=== PATIENT | female | born 1960 | race Caucasian/White ===

== ENCOUNTER 2019-06-06 13:58 | Outpatient (CLI) | payer MEDICARE, SELFPAY ==
--- NOTE | ~2019-06-06 | CT_ITS ---
EXAMINATION: CTA chest PE protocol EXAM DATE: 06/06/2019 15:15 INDICATION: Shortness of breath, DVT. TECHNIQUE: Spiral CTA of the chest (pulmonary arteries) was performed with 100 cc Omnipaque 350 intr avenous contrast injection. Images were acquired during the pulmonary arterial phase. Coronal maxi mum intensity projection 3D-reconstructions were created by the technologist on dedicated workstation . Axial, coronal and sagittal reformatted images were reviewed. The dose-length product (DLP) for t his examination was 904.44 mGy-cm. The exposure was tailored according to patient size (auto mA exp osure control), and iterative reconstruction (ASIR) was used as additional dose reduction technique. There is no prior study for comparison. FINDINGS: Pulmonary arteries are well opacified and without intraluminal filling defects. No thora cic aortic dissection. Right lower lobe noncalcified subcentimeter granuloma unchanged compared to 2 007. Linear right lower lobe subsegmental atelectasis. There are no pleural or pericardial effusions . Tracheobronchial tree is patent. There is no mediastinal, hilar or axillary lymphadenopathy. There is no pneumothorax. Heart normal in size. No evidence of coronary arterial calcification. Upper abdomen is unremarkable. There is thoracic spondylosis without osteoblastic or osteolytic les ions identified. Mild thyromegaly, small right thyroid lobe nodule. IMPRESSION: 1. No pulmonary emboli. 2. Granuloma, right basilar subsegmental atelectasis. Reviewed, dictated and finalized at location A. SITOLOGIST
[2019-06-06 15:05] LABS: Blood Urea Nitrogen 17 mg/dL (8-26); Estimated Glomerular Filt Rate > 60
== END 2019-06-06 13:59 | disposition home or self-care (01) ==
PROVIDERS: PCP Family Medicine; Visit Provider Physician Assistant
DX: J98.11 Atelectasis (principal); I82.401 Acute embolism and thrombosis of unspecified deep veins of right lower extremity
CPT/HCPCS: 71275; Q9967

== ENCOUNTER 2019-11-01 09:24 | Outpatient (CLI) | payer MEDICARE, SELFPAY ==
--- NOTE | ~2019-11-01 | US_ITS ---
EXAMINATION: US venous doppler LE RT DATE: 11/01/2019 10:39 INDICATION: Acute embolism and thrombosis, history of deep venous thrombosis of the right lower extre mity TECHNIQUE: Johnson scale images without and with compression and Doppler images of the right lower extre mity veins were obtained. COMPARISON: 04/24/2019 FINDINGS: The right common femoral vein, profunda femoral vein, femoral vein, popliteal vein, peronea l trunk, posterior tibial veins, and greater saphenous vein are patent. IMPRESSION: 1. Patent right lower extremity veins. No evidence of deep venous thrombosis. Reviewed, dictated and finalized at location A.
== END 2019-11-01 09:25 | disposition home or self-care (01) ==
LOC: ANHIMG 09:26
PROVIDERS: Visit Provider Family Medicine
DX: I82.401 Acute embolism and thrombosis of unspecified deep veins of right lower extremity (principal)
CPT/HCPCS: 93971

== ENCOUNTER 2020-03-19 08:17 | Outpatient (CLI) | payer MEDICARE, SELFPAY ==
--- NOTE | ~2020-03-19 | MM_ITS ---
EXAMINATION: MM screening [facility] BI w kerry HISTORY: Screening mammogram TECHNIQUE: Craniocaudal and mediolateral oblique 3-D tomosynthesis images were obtained and synthetic 2-D images were generated. CAD analysis was submitted and interpreted. COMPARISON: 02/25/2019, 02/18/2018, 02/13/2017 bilateral digital screening mammogram examinations BREAST PARENCHYMAL COMPOSITION: The breasts are heterogeneously dense, which may obscure small masses . FINDINGS: There is no evidence of suspicious mass, calcification, or architectural distortion to sugg est malignancy in either breast. There has been no suspicious interval change. IMPRESSION: 1. No mammographic evidence of malignancy. 2. Recommend routine screening mammography in one year. BI-RADS Category 1: Negative Reviewed, dictated and finalized at location A. BER FRAME CHANGER
== END 2020-03-19 08:18 | disposition home or self-care (01) ==
LOC: ANHIMG 08:20
PROVIDERS: Visit Provider Family Medicine
DX: Z12.31 Encounter for screening mammogram for malignant neoplasm of breast (principal)
CPT/HCPCS: 77063; 77067

== ENCOUNTER 2020-06-24 09:15 | Outpatient (CLI) | payer MEDICARE, SELFPAY | END 2020-06-24 09:16 | disposition home or self-care (01) | LOC: ANHCOVIDVC 09:16 | PROVIDERS: PCP Family Medicine | DX: Z23 Encounter for immunization (principal) | CPT/HCPCS: 0001A; 91300 ==

== ENCOUNTER 2020-07-15 09:13 | Outpatient (CLI) | payer MEDICARE, SELFPAY | END 2020-07-15 09:14 | disposition home or self-care (01) | LOC: ANHCOVIDVC 09:15 | PROVIDERS: PCP Family Medicine | DX: Z23 Encounter for immunization (principal) | CPT/HCPCS: 0002A; 91300 ==

== ENCOUNTER 2020-11-15 08:48 | Outpatient (CLI) | payer MEDICARE, SELFPAY ==
--- NOTE | ~2020-11-15 | US_ITS ---
EXAMINATION: US venous doppler LE RT DATE: 11/15/2020 09:16 INDICATION: Acute embolism and thrombosis of unspecified deep vein, history of deep venous thrombosis TECHNIQUE: Johnson scale images without and with compression and Doppler images of the right lower extre mity veins were obtained. COMPARISON: 11/01/2019 FINDINGS: The right common femoral vein, profunda femoral vein, femoral vein, popliteal vein, peronea l trunk, posterior tibial veins, and greater saphenous vein are patent. IMPRESSION: 1. Patent right lower extremity veins. No evidence of deep venous thrombosis. Reviewed, dictated and finalized at location A.
== END 2020-11-15 08:49 | disposition home or self-care (01) ==
PROVIDERS: PCP Family Medicine; Visit Provider Family Medicine
DX: M79.604 Pain in right leg (principal)
CPT/HCPCS: 93971

== ENCOUNTER 2021-03-03 08:44 | Outpatient (CLI) | payer MEDICARE, SELFPAY ==
--- NOTE | ~2021-03-03 | XR_ITS ---
XR shoulder LT min 2V DATE: 03/03/2021 09:01 INDICATION: Left shoulder pain for one month TECHNIQUE: 4 views COMPARISON: 04/27/2008 left shoulder FINDINGS: There is prominent osteoarthritic spurring of the left humeral head. There is degenerative spurring at the, clavicular joint. There is osteopenia. No fracture or dislocation, periosteal reaction or bone destruction or abnormal soft tissue calcifica tion is detected. IMPRESSION: Left glenohumeral osteoarthritis Degenerative change at the left acromioclavicular joint Reviewed, dictated and finalized at location A. OISOTOPE PRODUCTION OPERATOR
== END 2021-03-03 08:45 | disposition home or self-care (01) ==
LOC: ANHIMG 08:48
PROVIDERS: PCP Family Medicine; Visit Provider Family Medicine
DX: M19.012 Primary osteoarthritis, left shoulder (principal)
CPT/HCPCS: 73030

== ENCOUNTER 2021-04-20 08:11 | Outpatient (CLI) | payer MEDICARE, SELFPAY ==
--- NOTE | ~2021-04-20 | MM_ITS ---
EXAMINATION: MM screening [facility] BI w kerry HISTORY: Screening mammogram TECHNIQUE: Craniocaudal and mediolateral oblique 3-D tomosynthesis images were obtained and synthetic 2-D images were generated. CAD analysis was submitted and interpreted. COMPARISON: 03/19/2020, 02/25/2019, 02/18/2018 BREAST PARENCHYMAL COMPOSITION: There are scattered areas of fibroglandular density. FINDINGS: There is no evidence of suspicious mass, calcification, or architectural distortion to sugg est malignancy in either breast. There has been no suspicious interval change. IMPRESSION: 1. No mammographic evidence of malignancy. 2. Recommend routine screening mammography in one year. BI-RADS Category 1: Negative Reviewed, dictated and finalized at location A. ALL OPERATOR
== END 2021-04-20 08:12 | disposition home or self-care (01) ==
LOC: ANHIMG 08:14
PROVIDERS: PCP Family Medicine; Visit Provider Family Medicine
DX: Z12.31 Encounter for screening mammogram for malignant neoplasm of breast (principal)
CPT/HCPCS: 77063; 77067

== ENCOUNTER 2022-06-02 07:52 | Outpatient (RCR) | payer MEDICARE, SELFPAY ==
[2022-06-02 08:33] VITALS: BMI 39.9
== END 2022-07-31 12:41 | disposition home or self-care (01) ==
LOC: ANHWOC 07:52
PROVIDERS: PCP Family Medicine; Visit Provider Family Medicine
DX: L98.491 Non-pressure chronic ulcer of skin of other sites limited to breakdown of skin (principal)
CPT/HCPCS: 99213; A9270; G0463

== ENCOUNTER 2022-06-29 07:23 | Outpatient (CLI) | payer MEDICARE, SELFPAY ==
--- NOTE | ~2022-06-29 | MM_ITS ---
EXAMINATION: MM screening hope BI w kerry HISTORY: Screening mammogram TECHNIQUE: Craniocaudal and mediolateral oblique 3-D tomosynthesis images were obtained and synthetic 2-D images were generated. CAD analysis was submitted and interpreted. COMPARISON: 04/21/2021, 03/2020, 02/25/2019 bilateral screening mammogram examinations BREAST PARENCHYMAL COMPOSITION: The breasts are heterogeneously dense, which may obscure small masses . FINDINGS: There is no evidence of suspicious mass, calcification, or architectural distortion to sugg est malignancy in either breast. There has been no suspicious interval change. IMPRESSION: 1. No mammographic evidence of malignancy. 2. Recommend routine screening mammography in one year. BI-RADS Category 1: Negative Reviewed, dictated and finalized at location A.
== END 2022-06-29 07:24 | disposition home or self-care (01) ==
LOC: ANHIMG 07:24
PROVIDERS: PCP Family Medicine; Visit Provider Family Medicine
DX: Z12.31 Encounter for screening mammogram for malignant neoplasm of breast (principal)
CPT/HCPCS: 77063; 77067

== ENCOUNTER 2022-08-23 08:15 | Outpatient (CLI) | payer MEDICARE, SELFPAY ==
--- NOTE | ~2022-08-23 | XR_ITS ---
EXAMINATION: XR chest 2V 08/23/2022 08:35 INDICATION: Chronic cough. COPD. PROCEDURE: 2 view chest COMPARISON: Comparison to multiple prior studies sequentially, with oldest reviewed study dated 05/2009. FINDINGS: The lungs are clear. The cardiomediastinal silhouette is within normal limits. There are no pleural effusions. There is no pneumothorax suspected. There is moderate thoracic spondylosis. IMPRESSION: 1: NO ACUTE CARDIOPULMONARY DISEASE. Reviewed, dictated and finalized at location B.
== END 2022-08-23 08:16 | disposition home or self-care (01) ==
PROVIDERS: PCP Family Medicine; Visit Provider Physician Assistant
DX: R05.3 Chronic cough (principal)
CPT/HCPCS: 71046

== ENCOUNTER 2023-07-09 08:27 | Outpatient (CLI) | payer MEDICARE, SELFPAY ==
--- NOTE | ~2023-07-09 | XR_ITS ---
XR chest 2V 07/09/2023 08:42 Indication: Cough. Fevers. Procedure: 2 view chest Comparison: 08/23/2022 Findings: There are infiltrates of the right mid and lower lung, suspicious for pneumonia. Heart size normal. No pleural effusion or pneumothorax. No acute osseous abnormality. Impression: 1: Infiltrates of the right mid and lower lung, compatible with pneumonia. Reviewed, dictated and finalized at location B. Impression: 1: Infiltrates of the right mid and lower lung, compatible with pneumonia.
== END 2023-07-09 08:28 | disposition home or self-care (01) ==
LOC: ANHIMG 08:29
PROVIDERS: PCP Family Medicine; Visit Provider Family Medicine
DX: R05.9 Cough, unspecified (principal); R91.8 Other nonspecific abnormal finding of lung field
CPT/HCPCS: 71046

== ENCOUNTER 2023-08-23 09:08 | Outpatient (CLI) | payer MEDICARE, SELFPAY ==
--- NOTE | ~2023-08-23 | XR_ITS ---
EXAMINATION: XR toe 1st RT min 2V DATE: 08/23/2023 09:30 INDICATION: Right great toe puncture wound without foreign body. TECHNIQUE: 4 views of right great toe were obtained. COMPARISON: None. FINDINGS: There is mild hallux valgus. No fracture. There is mild osteoarthritis of first metatarsoph alangeal joint. IMPRESSION: 1. No fracture or radiopaque foreign body. Reviewed, dictated and finalized at location A.
== END 2023-08-23 09:09 | disposition home or self-care (01) ==
LOC: ANHIMG 09:13
PROVIDERS: PCP Family Medicine; Visit Provider Physician Assistant Medical
DX: L84 Corns and callosities (principal); S91.131A Puncture wound without foreign body of right great toe without damage to nail, initial encounter; E11.628 Type 2 diabetes mellitus with other skin complications; X58.XXXA Exposure to other specified factors, initial encounter
CPT/HCPCS: 73660

== ENCOUNTER 2023-09-03 16:33 | Outpatient (CLI) | payer MEDICARE, SELFPAY ==
[2023-09-03 17:17] LABS: Basophils Absolute Auto 0.1 K/mm3 (0.0-0.1); Basophils Percent Auto 0.6 % (0.2-1.2); Eosinophils Absolute Auto 0.3 K/mm3 (0-0.3); Eosinophils Percent Auto 2.6 % (0-4.4); Hematocrit 44.1 % (37.0-47.0); Hemoglobin 13.5 g/dL (12.0-15.0); Immature Granulocyte Absolute 0.13 K/mm3 (0.00-0.031); Lymphocytes Absolute Auto 1.36 K/mm3 (0.9-3.2); Mean Corpuscular HGB Conc 30.6 g/dl (32-36); Mean Corpuscular Hemoglobin 26.2 pg (26-34); Mean Corpuscular Volume 85.6 fl (80-100); Mean Platelet Volume 11.9 fl (7.4-10.4); Monocytes Percent Auto 8.1 % (2.6-8.5); Neutrophils Absolute Auto 9.5 K/mm3 (1.3-6.7); Neutrophils Percent Auto 76.7 % (45.5-73.1); Platelet Count Result 232 k/mm3 (150-375); Red Blood Count 5.15 M/mm3 (4.2-5.4); Red Cell Distribution Width 16.5 % (11.5-14.5); White Blood Count 12.4 K/mm3 (4.5-10.0)
[2023-09-03 17:30] LABS: CRP 0.5 mg/dL (<1.0)
[2023-09-03 18:19] LABS: Erythrocyte Sedimentation Rate 8 mm/hr (0-20)
== END 2023-09-03 16:34 | disposition home or self-care (01) ==
LOC: ANHLAB 16:37
PROVIDERS: PCP Family Medicine; Visit Provider Podiatrist Foot & Ankle Surgery
DX: L03.031 Cellulitis of right toe (principal)
CPT/HCPCS: 36415; 85025; 85652; 86140

== ENCOUNTER 2023-09-05 08:20 | Outpatient (CLI) | payer MEDICARE, SELFPAY ==
--- NOTE | ~2023-09-05 | MM_ITS ---
EXAMINATION: MM screening hope BI w kerry HISTORY: Screening TECHNIQUE: Craniocaudal and mediolateral oblique 3-D tomosynthesis images were obtained and synthetic 2-D images were generated. CAD analysis was submitted and interpreted. COMPARISON: Comparison to multiple prior studies sequentially, with oldest reviewed study dated 01/16. BREAST PARENCHYMAL COMPOSITION: Not dense: There are scattered areas of fibroglandular density. FINDINGS: There is no evidence of suspicious mass, calcification, or architectural distortion to sugg est malignancy in either breast. There has been no suspicious interval change. IMPRESSION: 1. No mammographic evidence of malignancy. 2. Recommend routine screening mammography in one year. BI-RADS Category 1: Negative Reviewed, dictated and finalized at location A.
== END 2023-09-05 08:21 | disposition home or self-care (01) ==
LOC: ANHIMG 08:23
PROVIDERS: PCP Family Medicine; Visit Provider Family Medicine
DX: Z12.31 Encounter for screening mammogram for malignant neoplasm of breast (principal)
CPT/HCPCS: 77063; 77067

== ENCOUNTER 2023-11-01 09:17 | Outpatient (CLI) | payer MEDICARE, SELFPAY ==
--- NOTE | ~2023-11-01 | XR_ITS ---
XR foot RT min 3V Ordering provider: Elias Forte Jr., DPM History: . CELLULITIS, RIGHT HALLUX WITH ULCER SINCE AUGUST . Comparison: None. FINDINGS: BONES: No acute fracture or dislocation. No definite osteomyelitis seen. JOINT SPACES: Normal. No tarsal coalition. SOFT TISSUES: Soft tissue swelling on the dorsum of the foot. Soft tissue swelling over the distal ph alanx of the right big toe. IMPRESSION: No acute osseous abnormality of the right foot. Cellulitis involving the right big toe and on the dorsum of the foot. Reviewed, dictated and finalized at location A.
== END 2023-11-01 09:18 | disposition home or self-care (01) ==
LOC: ANHIMG 09:25
PROVIDERS: PCP Family Medicine; Visit Provider Podiatrist Foot & Ankle Surgery
DX: L03.031 Cellulitis of right toe (principal)
CPT/HCPCS: 73630

== ENCOUNTER 2023-12-31 08:41 | Outpatient (CLI) | payer MEDICARE, SELFPAY ==
--- NOTE | ~2023-12-31 | XR_ITS ---
XR chest 2V Ordering provider: Fran Sims MD History: 63 years Female with . PRODUCTIVE DELIO X 2 MONTHS. . Comparison: July 09, 2023 FINDINGS: MEDIASTINUM: The cardiac silhouette is not enlarged. LUNGS: No infiltrates, effusions or pneumothorax. Prominent markings in the lower lobes. OTHER: No free air under the diaphragm. Degenerative changes of the spine. IMPRESSION: No definite abnormality seen. Reviewed, dictated and finalized at location A.
== END 2023-12-31 08:42 | disposition home or self-care (01) ==
PROVIDERS: PCP Family Medicine; Visit Provider Family Medicine
DX: R05.9 Cough, unspecified (principal)
CPT/HCPCS: 71046

== ENCOUNTER 2024-09-01 10:27 | Outpatient (CLI) | payer MEDICARE, SELFPAY ==
--- NOTE | ~2024-09-01 | XR_ITS ---
XR shoulder LT min 2V Ordering provider: Fran Sims MD History: . M25.512 - Pain in left shoulder . Comparison: None. FINDINGS: BONES: No acute fracture or dislocation. JOINT SPACES: The acromioclavicular joint shows moderate osteoarthritic changes. The glenohumeral malu nt shows severe osteoarthritic changes. SOFT TISSUES: Normal. IMPRESSION: No acute osseous abnormality left shoulder. Severe osteoarthritic changes of the left shoulder. Reviewed, dictated and finalized at location A.
--- OUTSIDE RECORDS SUMMARY | 2024-09-01 11:06 | XMS_ITS | Clinical Summary ---
Author Organization [facility] Address [address] [place] [id number] Care Team Providers Care Certified Medical Assistant Name Role Phone Unavailable Primary Care Provider Unavailabl e Social History Tobacco Use Types Packs/Day Years Used Date Smoking Tobacco: Never Assessed Comments Unknown Sex and Gender Information Value Date Recorded Sex Assigned at Not on file Legal Sex Female 7:05 PM CDT Gender Identity Not on file Sexual Orientation Not on file Plan of Treatment Health Maintenance Due Date Last Done Comments Cervical Cancer Screening Pa p Smear (Age 30 to 64) Every 3 Years 1960 Colorectal Cancer Screening Colonoscopy (10 Years) 1960 Annual Physical 08/09/1963 Hepatitis C 1978 DTaP, Tdap and Td Vaccines ( 1 - Tdap) 08/09/1979 Cervical Cancer Screening Pa p with HPV Testing (Age 30 to 64) Every 5 Years 1990 Cervical Cancer Screening with HPV 1990 Mammogram Screening 2000 Pneumococcal Vaccine: 50+ Ye ars (1 of 1 - PCV) 2010 Zoster Vaccines (1 of 2) 2010 COVID-19 Vaccine (2023-2 5 season) 2023 RSV Immunization or 60+ Years (1 - 1-dose 75+ series) 08/09/2035 Meningococcal B Vaccine Aged Out No l onger eligible based on patient's age to complete this topic Meningococcal Vaccine Aged Out No jo ann lat[place] eligible based on patient's age to complete this topic RSV Immunizations Under 20 Months Aged Out No longer eligible based on patient's age to complete this topic
--- OUTSIDE RECORDS SUMMARY | 2024-09-01 11:06 | XMS_ITS | Clinical Summary ---
Author Organization [facility] [place] [address] Address [address] [place] [address] Care Team Providers Care Jumpbasting Collar Baster Name Role Phone Fran Sims MD Primary Care Provider Allergies Active Allergy Reactions Criticality Noted Date Comments Atorvastatin Rash Medium 04/30/2017 Medications pravastatin (PRAVACHOL) 20 mg tablet Take 1 tablet (20 mg total) by mouth daily Active amitriptyline (ELAVIL) 50 mg tablet Take 1 tablet (50 mg total) by mouth nightly Active lisinopril (PRINIVIL,ZESTRI L) 40 mg tablet Take 1 tablet (40 mg total) by mouth daily Active amLODIPine (NORVASC) 10 mg tablet Take 1 tablet (10 mg total) by mouth daily Active metFORMIN (GLUCOPHAGE) 500 mg tablet Take 4 tablets po every day with evening meal Active fluticasone-salm eterol (ADVAIR DISKUS) 500-50 mcg/dose diskus inhaler Inhale 1 puff 2 (two) times a day Rinse mouth with water after use to reduce aftertaste and incidence of candidiasis. Do not swallow. Active ipratropium (ATROVENT HFA) 17 mcg/actuation inhaler Inhale 2 puffs 4 (four) times a day Active albuterol (PROVENTIL,UMER JANESSA) 2.5 mg /3 mL (0.083 %) nebulizer solution Take 3 mL (2.5 mg total) by nebulization every 6 (six) hours as needed for wheezing Active gabapentin (NEURONTIN) 100 mg capsule Take 1 capsule (100 mg total) by mouth 2 (two) times a day 2 Active Januvia 100 mg tablet Take 1 tablet (100 mg total) by mouth daily 2 Active metoprolol tartrate (LOPRESSOR) 25 mg immediate release tabletIndication s:Palpitations,M ixed hyperlipidemia,E ssential hypertension TAKE 1 TABLET BY MOUTH TWICE A DAY 180 tablet 5 Active Active Problems Problem Noted Date Diagnosed Date History of DVT (deep vein thrombosis) 10/09/2022 Morbid (severe) obesity due to excess calories 0 07/25/2021 Body mass index (BMI) 50.0-59.9, adult 2 Palpitations 04/30/2017 Assessment & Plan (09/24/2017 8:18 AM CDT): Symptoms improved with metoprolol. Continue observation. Assessment & Plan (06/11/2017 8:42 AM SEAPORT PLANNING MANAGER): I will start metoprolol 25 mg p.o. b.i.d. to help suppress these premature atrial contractions and atrial runs. Assessment & Plan (04/30/2017 8:31 AM SEAPORT PLANNING MANAGER): Frequent premature atrial contractions and atrial runs. Advised patient to cut down on coffee and switch to decaf coffee. We will obtain echocardiogram to assess cardiac structure and function. Check TSH if it was not checked before. Essential hypertension 04/30/2017 Assessment & Plan (09/24/2017 8:18 AM CDT): Blood pressure is well controlled. Continue current treatment Assessment & Plan (06/11/2017 8:42 AM SEAPORT PLANNING MANAGER): Blood pressure is controlled. Continue current treatment. Assessment & Plan (04/30/2017 8:31 AM SEAPORT PLANNING MANAGER): Blood pressure is controlled. Continue current medications. Morbid obesity with BMI of 50.0-59.9, adult 04/16 Assessment & Plan (09/24/2017 8:18 AM CDT): Advised about diet modification and regular exercise help her lose weight. Assessment & Plan (06/11/2017 8:42 AM SEAPORT PLANNING MANAGER): Advised about the importance of diet and exercise to help her lose weight. Assessment & Plan (04/30/2017 8:32 AM SEAPORT PLANNING MANAGER): Advised about diet modification and the importance of losing weight and regular exercise. Morbid obesity due to excess calories 04/30/2017 Mixed hyperlipidemia 04/30/2017 Assessment & Plan (09/24/2017 8:19 AM CDT): Continue Pravachol. Assessment & Plan (04/30/2017 8:37 AM SEAPORT PLANNING MANAGER): Will controlled on pravastatin. Surgical History Surgery Date Site/Laterality Comments HYSTERECTOMY ROTATOR CUFF REPAIR Medical History Medical History Date Comments Hypertension Dizziness Heart attack (HCC) Overweight (BMI 25.0-29.9) Diabetes mellitus (HCC) Hyperlipidemia COPD (chronic obstructive pulmonary disease) (HC C) Asthma Arthritis Family History Medical History Relation Name Comments Lung cancer Mother Relation Name Status Comments Mother (Age 59) Social History Tobacco Use Types Packs/Day Years Used Date Smoking Tobacco: Never Smokeless Tobacco: Never Tobacco Cessation:Counseling Given: Not Answered Alcohol Use Standard Drinks/Week Comments No 0 (1 standard drink = 0.6 oz pur e alcohol) Personal Safety Answer Date Recorded Getting School Help Needed Not on file 06/29 Comments Unknown Sex and Gender Information Value Date Recorded Sex Assigned at Not on file Legal Sex Female 12:43 AM SEAPORT PLANNING MANAGER Gender Identity Not on file Sexual Orientation Not on file Obstetrics History Last Filed Vital Signs Vital Sign Reading Time Taken Comments Blood Pressure 122/70 10/15/2023 7:51 AM CDT Pulse 82 10/15/2023 7:51 AM CDT Temperature - - Respiratory Rate 17 09/22/2019 9:42 AM CDT Oxygen Saturation 97% 10/15/2023 7:51 AM CDT Inhaled Oxygen Concentration - - Weight 155.2 kg (342 lb 3.2 oz) 10/15/2023 7:51 AM CDT Height 175.3 cm (5' 9 ) 10/15/2023 7:51 AM CDT Body Mass Index 50.53 10/15/2023 7:51 AM CDT Plan of Treatment Health Maintenance Due Date Last Done Comments Breast Cancer Screening-Mammogram 1960 Colon Cancer Screening-Colonoscopy 1960 Depression Screening 1960 Hepatitis C Screening 1960 DTaP/Tdap/Td Vaccine (1 - Tdap) 08/09/1971 Hepatitis B Screening 1978 Regular Well Visit/Exam 18-64 1978 Zoster Vaccine (1 of 2) 2010 Influenza Vaccine (Season Ended) 2024 01/18/2017, 01/19/2016, 01/18/2015, Additional history exists Pneumococcal vaccine <65 Aged Out 018, 01/18/2017, 01/19/2016, Additional history exists No longer eligible based on patient's age to complete this topic Insurance [place] [id number] [place] [id number] Care Teams Jumpbasting Collar Baster Relationship Specialty Start Date End Date Fran Sims MD [address] [facility] [address] [place] [address] PCP - General Family Medicine 12/05/16
--- OUTSIDE RECORDS SUMMARY | 2024-09-01 11:07 | XMS_ITS | Referral Summary ---
Author Organization [facility] [place] [address] Address [address] [place] [address] Care Team Providers Care Housekeeping Laundry Worker Name Role Phone Fran Sims MD Primary [...] observation. Assessment & Plan (06/11/2017 8:42 AM NEEDLE GRADER): I will start metoprolol 25 mg p.o. b.i.d. to help suppress these premature atrial contractions and atrial runs. Assessment & Plan (04/30/2017 8:31 AM NEEDLE GRADER): Frequent premature atrial contractions and atrial runs. Advised patient to cut down on coffee and switch to decaf coffee. We will obtain echocardiogram to assess cardiac structure and function. Check TSH if it was not checked before. Essential hypertension 04/30/2017 Assessment & Plan (09/24/2017 8:18 AM CDT): Blood pressure is well controlled. Continue current treatment Assessment & Plan (06/11/2017 8:42 AM NEEDLE GRADER): Blood pressure is controlled. Continue current treatment. Assessment & Plan (04/30/2017 8:31 AM NEEDLE GRADER): Blood pressure is controlled. Continue current medications. Morbid obesity with BMI of 50.0-59.9, adult 04/16 Assessment & Plan (09/24/2017 8:18 AM CDT): Advised about diet modification and regular exercise help her lose weight. Assessment & Plan (06/11/2017 8:42 AM NEEDLE GRADER): Advised about the importance of diet and exercise to help her lose weight. Assessment & Plan (04/30/2017 8:32 AM NEEDLE GRADER): Advised about diet modification and the importance of losing weight and regular exercise. Morbid obesity due to excess calories 04/30/2017 Mixed hyperlipidemia 04/30/2017 Assessment & Plan (09/24/2017 8:19 AM CDT): Continue Pravachol. Assessment & Plan (04/30/2017 8:37 AM NEEDLE GRADER): Will controlled on pravastatin. Social History Tobacco Use Types Packs/Day Years [...] on file Legal Sex Female 12:43 AM NEEDLE GRADER Gender Identity Not on file Sexual Orientation Not on file Last Filed Vital Signs Vital Sign Reading [...] 10/15/2023 7:51 AM CDT Plan of Treatment Not on file Insurance [facility] MEDICARE ADVANTAGE [employer] MEDICARE ADVANTAGE Care Teams Housekeeping Laundry Worker Relationship Specialty Start Date End Date Fran Sims MD [address] [facility] [address] [place] [address] PCP - General Family Medicine 12/05/16
== END 2024-09-01 10:28 | disposition home or self-care (01) ==
PROVIDERS: PCP Family Medicine; Visit Provider Family Medicine
DX: M19.012 Primary osteoarthritis, left shoulder (principal)
CPT/HCPCS: 73030

== ENCOUNTER 2025-03-10 07:27 | Outpatient (CLI) | payer MEDICARE, SELFPAY ==
--- NOTE | ~2025-03-10 | MM_ITS ---
EXAMINATION: MM screening hope BI w kerry HISTORY: Screening TECHNIQUE: Craniocaudal and mediolateral oblique 3-D tomosynthesis images were obtained and synthetic 2-D images were generated. CAD analysis was submitted and interpreted. COMPARISON: Comparison to multiple prior studies sequentially, with oldest reviewed study dated 02/18/2018. BREAST PARENCHYMAL COMPOSITION: Not dense: There are scattered areas of fibroglandular density. FINDINGS: There is no evidence of suspicious mass, calcification, or architectural distortion to suggest malignancy in either breast. There has been no suspicious interval change. IMPRESSION: 1. No mammographic evidence of malignancy. 2. Recommend routine screening mammography in one year. BI-RADS Category 1: Negative Reviewed, dictated and finalized at location O. TRICAL CONTROLS ENGINEER
--- OUTSIDE RECORDS SUMMARY | 2025-03-10 07:29 | XMS_ITS | Clinical Summary ---
Author Organization [facility] [address] Address [address] [place] [address] Care Team Providers Care Lining Presser Name Role Phone Fran Sims MD Primary [...] release tabletIndication s:Palpitations,M ixed hyperlipidemia,E ssential hypertension Take 1 tablet (25 mg total) by mouth 2 (two) times a day 180 tablet 5 Active Active Problems Problem Noted Date Diagnosed Date History of DVT (deep vein thrombosis) 10/09/2022 Morbid (severe) obesity due to excess calories 0 07/25/2021 Body mass index (BMI) 50.0-59.9, adult 2 Palpitations 04/30/2017 Assessment & Plan (09/24/2017 8:18 AM CDT): Symptoms improved with metoprolol. Continue observation. Assessment & Plan (06/11/2017 8:42 AM PARTY SUPPLY SPECIALIST): I will start metoprolol 25 mg p.o. b.i.d. to help suppress these premature atrial contractions and atrial runs. Assessment & Plan (04/30/2017 8:31 AM PARTY SUPPLY SPECIALIST): Frequent premature atrial contractions and atrial runs. Advised patient to cut down on coffee and switch to decaf coffee. We will obtain echocardiogram to assess cardiac structure and function. Check TSH if it was not checked before. Essential hypertension 04/30/2017 Assessment & Plan (09/24/2017 8:18 AM CDT): Blood pressure is well controlled. Continue current treatment Assessment & Plan (06/11/2017 8:42 AM PARTY SUPPLY SPECIALIST): Blood pressure is controlled. Continue current treatment. Assessment & Plan (04/30/2017 8:31 AM PARTY SUPPLY SPECIALIST): Blood pressure is controlled. Continue current medications. Morbid obesity with BMI of 50.0-59.9, adult 04/16 Assessment & Plan (09/24/2017 8:18 AM CDT): Advised about diet modification and regular exercise help her lose weight. Assessment & Plan (06/11/2017 8:42 AM PARTY SUPPLY SPECIALIST): Advised about the importance of diet and exercise to help her lose weight. Assessment & Plan (04/30/2017 8:32 AM PARTY SUPPLY SPECIALIST): Advised about diet modification and the importance of losing weight and regular exercise. Morbid obesity due to excess calories 04/30/2017 Mixed hyperlipidemia 04/30/2017 Assessment & Plan (09/24/2017 8:19 AM CDT): Continue Pravachol. Assessment & Plan (04/30/2017 8:37 AM PARTY SUPPLY SPECIALIST): Will controlled on pravastatin. Surgical History Surgery Date Site/Laterality Comments HYSTERECTOMY ROTATOR CUFF REPAIR Medical History Medical History Date Comments Hypertension Dizziness Heart attack (HCC) Overweight (BMI 25.0-29.9) Diabetes mellitus Hyperlipidemia COPD (chronic obstructive pulmonary disease) Asthma Arthritis Family History Medical History Relation Name Comments Lung cancer Mother Relation Name Status Comments Mother (Age 59) Social History Tobacco Use Types Packs/Day Years Used Date Smoking Tobacco: Never Smokeless Tobacco: Never Tobacco Cessation:Counseling Given: Not Answered Alcohol Use Standard Drinks/Week Comments No 0 (1 standard drink = 0.6 oz pur e alcohol) Comments Unknown Sex and Gender Information Value Date Recorded Sex Assigned at Not on file Legal Sex Female 12:43 AM PARTY SUPPLY SPECIALIST Gender Identity Not on file Sexual Orientation Not on file Last Filed Vital Signs Vital Sign Reading Time Taken Comments Blood Pressure 130/66 10/20/2024 8:02 AM CDT Pulse 84 10/20/2024 8:02 AM CDT Temperature - - Respiratory Rate 17 09/22/2019 9:42 AM CDT Oxygen Saturation 97% 10/20/2024 8:02 AM CDT Inhaled Oxygen Concentration - - Weight 153.2 kg (337 lb 12.8 oz) 10/20/2024 8:02 AM CDT Height 175.3 cm (5' 9) 10/20/2024 8:02 AM CDT Body Mass Index 49.88 10/20/2024 8:02 AM CDT Plan of Treatment Health Maintenance Due Date Last Done Comments Breast Cancer Screening-Mammogram 1960 Colon Cancer Screening-Colonoscopy 1960 Depression Screening 1960 Hepatitis C Screening 1960 DTaP/Tdap/Td Vaccine (1 - Tdap) 08/09/1971 Hepatitis B Screening 1978 Regular Well Visit/Exam 18-64 1978 Zoster Vaccine (1 of 2) 2010 Influenza Vaccine (#1) 2024 7, 01/19/2016, 01/18/2015, Additional history exists Pneumococcal vaccine <65 Aged Out 018, 01/18/2017, 01/19/2016, Additional history exists No longer eligible based on patient's age to complete this topic Insurance [place] [id number] [place] [phone] Care Teams Lining Presser Relationship Specialty Start Date End Date Fran Sims MD [address] [place] [phone] PCP - General Family Medicine 12/05/16
== END 2025-03-10 07:28 | disposition home or self-care (01) ==
LOC: ANHFOHIMG 07:28
PROVIDERS: PCP Family Medicine; Visit Provider Family Medicine
DX: Z12.31 Encounter for screening mammogram for malignant neoplasm of breast (principal)
CPT/HCPCS: 77063; 77067